=== PATIENT | male | born 1930 | race Caucasian/White ===

== ENCOUNTER 2017-07-22 09:00 | Emergency (ER) | payer MEDICARE ==
[2017-07-22] MEDS ORDERED: methylPREDNISolone Sod Succ/PF 125 MG/2 ML VIAL ONE (09:54)
[2017-07-22 10:13] LABS: #Eosinphils 0.4 thou/uL (0.0-0.7); #Lymphocytes 1.2 thou/uL (1.20-3.40); #Neutrophils 4.9 thou/uL (1.40-6.50); %Basophils 0.4 % (0.0-1.0); %Eosinophils 5.5 % (0.0-10.0); %Lymphocytes 16.1 % (21.0-51.0); %Monocytes 13.6 % (0.0-10.0); %Neutrophils 64.5 % (42.0-75.0); Hemoglobin 16.4 g/dL (14.0-18.0); Mean Corpuscular HGB CONC 34.6 g/dL (32.0-36.0); Mean Corpuscular Hemoglobin 34.7 pg (27.0-31.0); Mean Platelet Volume 6.4 fL (7.4-10.4); Platelet Count 192 thou/uL (130-400); RBC Distribution Width 12.3 % (11.5-14.5); Red Blood Cell (RBC) Count 4.73 mill/uL (4.70-6.10); White Blood Cell (WBC) Count 7.6 thou/uL (4.8-10.8)
[2017-07-22 10:30] LABS: ALT (SGPT) 20 U/L (8-55); AST (SGOT) 23 U/L (5-34); Albumin 3.9 g/dL (3.4-4.8); Alkaline Phosphatase 49 U/L (40-150); Anion Gap 13 mmol/L (10-20); BUN (Urea Nitrogen) 16 mg/dL (8.4-25.7); Bilirubin, Total 0.7 mg/dL (0.2-1.2); Calc. Creatinine Clearance 0 mL/min (70-130); Calcium 8.9 mg/dL (7.8-10.44); Carbon Dioxide 20 mmol/L (23-31); Chloride 106 mmol/L (98-107); Estimated GFR-MDRD 55; Globulin 3.1 g/dL (2.4-3.5); Glucose 117 mg/dL (83-110); Potassium 4.2 mmol/L (3.5-5.1); Sodium 135 mmol/L (136-145)
[2017-07-22 10:34] LABS: CKMB 0.8 ng/mL (0-6.6); Troponin I Less than 0.010 ng/mL (< 0.028)
--- NOTE | 2017-07-22 10:36 | RAD ---
CHEST 1 VIEW: HISTORY: Cough. COMPARISON: 03/24/16. FINDINGS: Cardiac silhouette is magnified and upper limits of normal in size. Pulmonary vasculature is also up per limits of normal. Parenchymal opacity at the left base is unchanged. Mediastinum is midline wit h aortic calcifications and postoperative changes. No degenerative changes of the shoulders. IMPRESSION: Chronic bibasilar interstitial markings, left greater than right, and other findings are stable. POS: CONRAD
--- NOTE | 2017-08-11 18:19 | EKG ---
Test Reason : COUGH Blood Pressure : / mmHG Vent. Rate : 117 BPM Atrial Rate : 117 BPM P-R Int : 000 ms QRS Dur : 086 ms QT Int : 346 ms P-R-T Axes : 004 -43 038 degrees QTc Int : 482 ms Sinus tachycardia Left axis deviation Inferior infarct , age undetermined Anterior infarct , age undetermined Abnormal ECG Confirmed by KATE MARIEE ([id number]), technical editor NICK QUIROZ ([id number]) on 08/11/2017 6:18:37 PM Referred By: Confirmed By:KATE MARIEE
== END 2017-07-22 11:47 | disposition home or self-care (01) ==
LOC: ERS 09:00
DX: J40 Bronchitis, not specified as acute or chronic (principal); I25.2 Old myocardial infarction; I10 Essential (primary) hypertension; Z79.899 Other long term (current) drug therapy; Z79.82 Long term (current) use of aspirin
CPT/HCPCS: 36415; 71045; 80053; 82553; 83880; 84484; 85025; 87804; 93005; 94640; 96374; J2930; J7620

== ENCOUNTER 2018-05-20 07:29 | Emergency (ER) | payer MEDICARE ==
--- NOTE | 2018-05-20 09:06 | CT ---
CT BRAIN WITHOUT CONTRAST: Date: 05/20/18 HISTORY: Head injury, trauma, headache. FINDINGS: No evidence of acute infarct, hemorrhage, midline shift, or abnormal extra-axial fluid collections ar e seen. The ventricular size is appropriate and the basilar cisterns are patent. The bony calvarium i s intact. The visualized paranasal sinuses and mastoid air cells are well aerated. IMPRESSION: No CT evidence of acute intracranial process. POS: OFF
== END 2018-05-20 09:05 | disposition home or self-care (01) ==
LOC: ERS 07:29
DX: S09.90XA Unspecified injury of head, initial encounter (principal); I25.2 Old myocardial infarction; Z79.899 Other long term (current) drug therapy; W20.8XXA Other cause of strike by thrown, projected or falling object, initial encounter
CPT/HCPCS: 70450

== ENCOUNTER 2019-03-10 10:29 | Outpatient (CLI) | payer MEDICARE ==
--- NOTE | 2019-03-10 11:44 | MRI ---
MRI lumbar spine noncontrast HISTORY: Low back pain. FINDINGS: There is prominent rightward convex rotatory scoliotic curvature. Conus medullaris has norm al appearance. Desiccation of all of the intervertebral discs. Heterogeneous bone marrow signal with prominent discogenic endplate changes. Posterior disc bulge at the T11-12 level. T12-L1: Minimal disc bulge. Osteophytosis of the facets. Central canal and neural foramina are patent . L1-2: Disc space narrowing. Posterior disc bulge and circumferential degenerative changes. Mild steno sis of the central canal. Severe stenosis of the right neural foramen. L2-3: Minimal degenerative retrolisthesis. Disc space narrowing. Posterior disc bulge and circumferen tial degenerative changes. Severe stenosis of the central canal and each neural foramen. L3-4: Mild posterior disc bulge. Circumferential degenerative changes. Mild stenosis of the central c anal. Moderate bilateral foraminal stenoses. L4-5: Minimal degenerative spondylolisthesis. Posterior disc bulge and circumferential degenerative c hanges moderate to severe stenosis of the central canal and each neural foramen. L5-S1: Disc space narrowing. Thecal sac is patent. Degenerative changes of the facets. Mild right for aminal stenosis. 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 Central canal and for aminal stenoses are most severe at the L2-3 level.
--- NOTE | 2019-03-10 12:41 | RAD ---
LUMBAR SPINE 4 VIEWS: Date: 03/10/19 HISTORY: Back pain. FINDINGS: Moderate degenerative changes are noted. There is mild scoliotic curvature of the lumbar spine with c onvexity to the right. Loss of disc space at L1-2 and L2-3 with prominent osteophytes. Posterior alig nment is preserved. Facet hypertrophy is prominent. Loss of disc space at L5-S1. Prominent anterior o steophytes at all levels. No evidence of spondylolisthesis. IMPRESSION: Moderately severe hypertrophic degenerative changes of lumbar spine. POS: NASH
== END 2019-03-10 10:30 | disposition home or self-care (01) ==
LOC: TBSIIMAG 10:29
PROVIDERS: ATTEND Physician Assistant Surgical
DX: M48.062 Spinal stenosis, lumbar region with neurogenic claudication (principal); M54.5 Low back pain; M51.36 Other intervertebral disc degeneration, lumbar region; M47.816 Spondylosis without myelopathy or radiculopathy, lumbar region; M47.817 Spondylosis without myelopathy or radiculopathy, lumbosacral region
CPT/HCPCS: 72110; 72148

== ENCOUNTER 2019-03-20 23:53 | Observation (INO) | payer MEDICARE ==
[2019-03-21 00:23] LABS: #Basophils 0.1 thou/uL (0.0-0.2); #Eosinphils 0.6 thou/uL (0.0-0.7); #Monocytes 1.1 thou/uL (0.11-0.59); #Neutrophils 6.4 thou/uL (1.40-6.50); %Eosinophils 5.6 % (0.0-10.0); %Monocytes 9.6 % (0.0-10.0); %Neutrophils 56.8 % (42.0-75.0); Mean Corpuscular HGB CONC 34.9 g/dL (32.0-36.0); Mean Corpuscular Hemoglobin 34.9 pg (27.0-31.0); Mean Platelet Volume 6.8 fL (7.4-10.4); Platelet Count 234 thou/uL (130-400); RBC Distribution Width 11.9 % (11.5-14.5); Red Blood Cell (RBC) Count 4.58 mill/uL (4.70-6.10); White Blood Cell (WBC) Count 11.2 thou/uL (4.8-10.8)
[2019-03-21 00:43] LABS: ALT (SGPT) 25 U/L (8-55); AST (SGOT) 22 U/L (5-34); Albumin 4.3 g/dL (3.4-4.8); Alkaline Phosphatase 43 U/L (40-110); Anion Gap 14 mmol/L (10-20); BUN (Urea Nitrogen) 24 mg/dL (8.4-25.7); Bilirubin, Total 0.6 mg/dL (0.2-1.2); CK (CPK) 81 U/L (30-200); Calc. Creatinine Clearance 0 mL/min (70-130); Calcium 9.6 mg/dL (7.8-10.44); Carbon Dioxide 24 mmol/L (23-31); Chloride 107 mmol/L (98-107); Estimated GFR-MDRD 43; Glucose 113 mg/dL (83-110); Potassium 4.1 mmol/L (3.5-5.1); Protein, Total 7.3 g/dL (5.8-8.1); Sodium 141 mmol/L (136-145)
[2019-03-21] MEDS ORDERED: Aspirin Chewable 81 MG TAB ONE (01:22)
[2019-03-21 03:55] VITALS: BMI 29.4
[2019-03-21 04:05] LABS: Troponin I Less than 0.010 ng/mL (< 0.028)
[2019-03-21] MEDS ORDERED: Ondansetron ODT 4 MG TAB SL PRN (05:08)
[2019-03-21] MEDS ORDERED: Ondansetron PF 4 MG/2 ML Vial IVP PRN (05:08)
[2019-03-21] MEDS ORDERED: Acetaminophen 325 MG TAB PO PRN (05:08)
--- NOTE | 2019-03-21 07:31 | RAD ---
Portable frontal chest radiograph: 03/21/2019 COMPARISON: 07/22/2017 HISTORY: Chest pain FINDINGS: Midline sternotomy wires are stable. Stable heart and mediastinal contours. There are stabl e increased linear interstitial density in both lung bases, left greater than right. No pneumothorax or pleural fluid. No focal consolidation or alveolar edema. IMPRESSION: Stable appearance of the chest-no acute findings.
[2019-03-21 07:52] VITALS: TEMP 97.7
[2019-03-21 09:59] LABS: #Basophils 0.1 thou/uL (0.0-0.2); #Eosinphils 0.6 thou/uL (0.0-0.7); #Lymphocytes 2.1 thou/uL (1.20-3.40); #Monocytes 0.9 thou/uL (0.11-0.59); %Basophils 0.9 % (0.0-1.0); %Eosinophils 6.1 % (0.0-10.0); %Lymphocytes 21.7 % (21.0-51.0); %Monocytes 9.3 % (0.0-10.0); Mean Corpuscular HGB CONC 34.8 g/dL (32.0-36.0); Mean Corpuscular Hemoglobin 34.6 pg (27.0-31.0); Mean Corpuscular Volume 99.6 fL (78.0-98.0); Mean Platelet Volume 6.5 fL (7.4-10.4); Platelet Count 213 thou/uL (130-400); RBC Distribution Width 11.7 % (11.5-14.5); Red Blood Cell (RBC) Count 4.33 mill/uL (4.70-6.10); White Blood Cell (WBC) Count 9.7 thou/uL (4.8-10.8)
[2019-03-21 10:20] LABS: Anion Gap 13 mmol/L (10-20); BUN (Urea Nitrogen) 24 mg/dL (8.4-25.7); Calc. Creatinine Clearance 41 mL/min (70-130); Calcium 9.7 mg/dL (7.8-10.44); Carbon Dioxide 24 mmol/L (23-31); Cardiac Risk 3.3 (Less than 4.5); Chloride 107 mmol/L (98-107); Cholesterol 116 mg/dl (< 200 Desired); Estimated GFR-MDRD 49; Glucose 114 mg/dL (83-110); HDL Cholesterol 35 mg/dL (>60 Neg Risk); LDL Cholesterol, Calculated 31 mg/dL; Potassium 3.9 mmol/L (3.5-5.1); Sodium 140 mmol/L (136-145); Triglycerides 248 mg/dL (Less than 150)
[2019-03-21 11:12] VITALS: BP 112/75
--- NOTE | 2019-03-21 13:44 | SS ---
DATE OF ADMISSION: 03/21/2019 DATE OF DISCHARGE: 03/21/2019 PRIMARY CARE PHYSICIAN: Dr. Richardson. CHIEF COMPLAINT: Chest pain. DISCHARGE DIAGNOSES: 1. Chest pain, which is now resolved. 2. Gastroesophageal reflux disease. 3. Coronary artery disease. 4. Previous AL. 5. Hyperlipidemia. 6. BPH. 7. venous insufficiency. CONSULTATIONS: None. PROCEDURES: None. SHORT-STAY SUMMARY: Mr. Loya is a pleasant 88-year-old male with past medical history of hypertension, hyperlipidemia, coronary artery disease, and GERD, presented to the ED late last night due to chest pain and chest tightness that started around 11:00 p.m. last night. The patient took 2 of his home Tums and had woken his up to bring him into the ED. A short while later, the patient's symptoms resolved. Once he got to the ED, he was given a full dose of aspirin and topical nitroglycerin. The patient had denied any fever, chills, headache, blurred vision, dizziness, any further chest pain, palpitations, shortness of breath, abdominal pain, nausea, or vomiting. He had recently seen his mechanical assembly technician, Dr. Perez 2 months ago and had a recent normal stress test, which showed normal left ventricular EF. His serial troponins were found to be negative. His EKG remained unchanged and throughout his stay in the hospital, his chest pain resolved, his BNP was found to be normal at 21.8, and his lab work was essentially unremarkable. Blood pressure and other vital signs remained stable, he has a followup with Dr. Perez . He was instructed to take his home medications and to follow up with Dr. Perez. However, if he had started to have chest pain again, he was instructed to call Dr. Perez's office to possibly perform a heart catheterization as outpatient. The patient was in agreement with this discharge plan and he was deemed medically stable for discharge home on 03/21/2019. His hospitalization was less than 12 hours. DISCHARGE MEDICATIONS: 1. Tamsulosin 0.4 mg at bedtime. 2. Atorvastatin 80 mg at bedtime. 3. Finasteride 5 mg daily. 4. Nexium 40 mg daily. 5. Zetia 10 mg at bedtime. 6. Metoprolol 25 mg b.i.d. 7. Polyethylene glycol 17 g daily p.r.n. for constipation. 8. Magnesium citrate 100 mg daily. 9. Vitamin B complex 100 mg daily. 10. Aspirin 81 mg daily. 11. Vitamin D3, 2000 units daily. 12. Coenzyme Q10, 50 mg daily. FOLLOWUP: The patient was instructed to follow up with his PCP and Dr. Perez as outpatient. CONDITION ON DISCHARGE: Stable. ACTIVITY: As tolerated. DIET: Heart healthy. DISPOSITION: Home on 03/21/2019. Job ID: [id number]
--- NOTE | 2019-03-22 14:08 | EKG ---
Test Reason : Blood Pressure : / mmHG Vent. Rate : 083 BPM Atrial Rate : 083 BPM P-R Int : 258 ms QRS Dur : 080 ms QT Int : 364 ms P-R-T Axes : 029 -41 047 degrees QTc Int : 427 ms Sinus rhythm with 1st degree A-V block Left axis deviation Anterior infarct , age undetermined Abnormal ECG Confirmed by REJI JACKSON DO ([id number]), brands editor EDDIE DESIR ([id number]) on 03/22/2019 2:08:27 PM Referred By: Confirmed By:REJI JACKSON DO
== END 2019-03-21 11:14 | disposition home or self-care (01) ==
LOC: ERS 23:53 → 2SE 03-21 02:49
PROVIDERS: ADMIT Internal Medicine; ATTEND Internal Medicine
DX: R07.89 Other chest pain (principal); K21.9 Gastro-esophageal reflux disease without esophagitis; I25.10 Atherosclerotic heart disease of native coronary artery without angina pectoris; I25.2 Old myocardial infarction; E78.5 Hyperlipidemia, unspecified; N40.0 Benign prostatic hyperplasia without lower urinary tract symptoms; I10 Essential (primary) hypertension; Z79.52 Long term (current) use of systemic steroids; Z79.82 Long term (current) use of aspirin; Z79.899 Other long term (current) drug therapy
CPT/HCPCS: 71045; 80048; 80053; 80061; 82550; 83735; 83880; 84484 ×2; 85025; 93005; 94760; 99285; G0378 ×2; 36415